=== PATIENT | female | born 1960 | race Two or more races ===

== ENCOUNTER 2019-03-23 14:32 | Inpatient (IN) | payer OTHER ==
[~2019-03-23] VITALS: Ht 160 cm; Wt 81.6 kg
[2019-03-28] MEDS ORDERED: LASIX20 MG PO (11:06)
[2019-03-28] MEDS ORDERED: GLUMETZA500 MG PO (11:06)
[2019-03-28] MEDS ORDERED: LOPI PO (11:06)
[2019-03-28] MEDS ORDERED: WELLBUTRIN SR100 MG PO (11:07)
[2019-03-28] MEDS ORDERED: VYTORIN 10-101 EACH PO (11:07)
[2019-03-28] MEDS ORDERED: [UNRECOGNIZED DRUG - OTHER] PO (11:08)
[2019-04-03] MEDS ORDERED: GEMFIBROZIL600 MG PO (09:17)
[2019-04-03] MEDS ORDERED: CLONAZEPAM0.5 MG PO (09:17)
[2019-04-03] MEDS ORDERED: RISPERDAL1 MG PO (09:17)
[2019-04-03] MEDS ORDERED: CLORAZEPATE D3.75 MG PO (09:21)
[2019-04-06] MEDS ORDERED: INTEGRA PLUS C1 EACH PO (09:04)
[2019-04-06] MEDS ORDERED: BACTRIM DS TAB1 EACH PO (09:04)
[2019-04-06] MEDS ORDERED: OXYC1TAB9 PO (09:04)
[2019-04-06] MEDS ORDERED: XARELTO10 MG PO (09:04)
== END 2019-04-06 13:58 | DRG 470 ==
LOC: ADM 03-28 08:45 → EDSTATUS 03-28 08:45 → SURH 04-03 05:38 → O/R 04-03 05:38 → SURH 04-03 08:45
PROVIDERS: ADMIT Orthopaedic Surgery Sports Medicine
PROC: 0SRC0J9 Replacement of Right Knee Joint with Synthetic Substitute, Cemented, Open Approach (ICD-10-PCS; principal; 2019-04-03 15:45)
DX: M17.11 Unilateral primary osteoarthritis, right knee (principal); D62 Acute posthemorrhagic anemia